=== PATIENT | male | born 2000 | race Caucasian/White ===

== ENCOUNTER → 2023-04-07 | Outpatient (CLI) | payer OTHER ==
[~2023-04-07] MED LIST: ISOVUE-300 61% 100ML VIAL As Ordered ONE; LIDOCAINE 1% MDV 20ML VIAL As Ordered ONE; PROHANCE 279.3MG/ML 5ML VIAL As Ordered ONE
== END ==
LOC: M RAD 06:27
PROVIDERS: ATTEND Orthopaedic Surgery
DX: M25.512 Pain in left shoulder (principal); S43.402A Unspecified sprain of left shoulder joint, initial encounter; X58.XXXA Exposure to other specified factors, initial encounter; Y92.9 Unspecified place or not applicable
CPT/HCPCS: 23350; 73223; 77002; A9576; Q9967

== ENCOUNTER 2023-07-28 08:50 | Day surgery (SDC) | payer OTHER ==
[~2023-07-28] VITALS: Ht 177.8 cm; Wt 80.2 kg
[2023-07-28] MEDS: LR 1,000 ML IV SCH (09:49)
[2023-07-28] MEDS ORDERED: ROPIvacaine 0.5% 30ML VIAL PN ONE (10:40)
[2023-07-28] MEDS ORDERED: dexAMETHasone 10MG/1ML VIAL PRES.FREE PN ONE (10:40)
[2023-07-28] MEDS ORDERED: LIDOCAINE 1% SDV 5ML VIAL PN ONE (10:40)
[2023-07-28] MEDS: fentaNYL 100 MCG/2 ML INJECTION IV PRN (10:57)
[2023-07-28] MEDS: MIDAZOLAM INJ 2MG/2ML VIAL IV PRN (10:57)
[2023-07-28] MEDS ORDERED: fentaNYL 100 MCG/2 ML INJECTION As Ordered ONE (12:33)
[2023-07-28] MEDS ORDERED: MIDAZOLAM INJ 2MG/2ML VIAL As Ordered ONE (12:33)
[2023-07-28] MEDS ORDERED: propofoL 200 MG/20 ML VIAL As Ordered ONE (12:33)
[2023-07-28] MEDS ORDERED: LIDOCAINE 2% 100MG/5ML SDV (FOR ANES.) As Ordered ONE (12:33)
[2023-07-28] MEDS ORDERED: ROCURONIUM BROMIDE 50MG/5ML VIAL As Ordered ONE (12:33)
[2023-07-28] MEDS: EPINEPHrine INJ 1 MG/ML 1ML AMP PN ONE (13:45)
[2023-07-28] MEDS ORDERED: ACETAMINOPHEN 1000MG 100ML IV BAG As Ordered ONE (13:51)
[2023-07-28] MEDS ORDERED: TRANEXAMIC ACID 100 MG/ML 10ML VIAL As Ordered ONE (13:54)
[2023-07-28] MEDS: TRANEXAMIC ACID 100 MG/ML 10ML VIAL IV ONE (13:55)
[2023-07-28] MEDS: ceFAZolin SOD 2 GM in IV 1 EA IV ONE (13:55)
[2023-07-28] MEDS ORDERED: KETOROLAC 60MG 2ML VIAL As Ordered ONE (15:18)
[2023-07-28] MEDS ORDERED: SUGAMMADEX SODIUM 500 MG/5 ML VIAL (BRIDION) As Ordered ONE (15:18)
[2023-07-28] MEDS ORDERED: ONDANSETRON 4MG 2ML VIAL As Ordered ONE (15:18)
[2023-07-28] MEDS: VANCOMYCIN 1000MG/20ML VIAL As Ordered ONE (15:29)
[2023-07-28] MEDS ORDERED: dexmedeTOMIDine (4MCG/ML)200MCG/50ML BTL (PRECEDEX) As Ordered ONE (15:39)
[2023-07-28] MEDS ORDERED: fentaNYL 100 MCG/2 ML INJECTION IV PRN (15:55)
[2023-07-28] MEDS ORDERED: oxyCODONE 5MG TAB PO PRN (15:55)
[2023-07-28] MEDS ORDERED: LR 1,000 ML IV SCH (15:55)
[2023-07-28] MEDS ORDERED: ONDANSETRON 4MG 2ML VIAL IV STA (15:57)
[2023-07-28] MEDS: ONDANSETRON 4MG 2ML VIAL IV PRN (15:58)
[2023-07-28] MEDS: METOCLOPRAMIDE INJ 10MG/2ML VIAL IV ONE (16:20)
[2023-07-28 17:10] VITALS: BP 132/67; TEMP 97.2; O2SAT 100
== END 2023-07-28 17:17 | disposition home or self-care (01) ==
LOC: M SDC 08:50
PROVIDERS: ATTEND Orthopaedic Surgery
DX: S43.432A Superior glenoid labrum lesion of left shoulder, initial encounter (principal); Y92.89 Other specified places as the place of occurrence of the external cause; Y93.9 Activity, unspecified
CPT/HCPCS: 29806; 29826; 64415; C1713; J0131; J0171; J0690; J1100; J1885; J2250; J2405; J2765; J3010